=== PATIENT | female | born 1995 ===

== ENCOUNTER 2018-04-26 05:50 | Inpatient (IN) | payer OTHER ==
[2018-04-26] MEDS ORDERED: SODIUM PHOSPHATE/NA BIPHOS 133 ML ENEMA PR ONE (06:44)
[2018-04-26] MEDS ORDERED: DEXTROSE 5%-LACTATED RINGERS 1,000 ML IV SCH (06:45)
--- NOTE | 2018-04-26 06:50 | HP ---
Past Medical History - Primary Care Physician PCP:: Virgie Arteaga - Admission Chief Complaint: 22 yrs 39 .5 weeks , c/o onset of LP since 3.00AM History of Present Illness: care at [facility] transferred to [address] [place] [address] . pt has only 3 visits in the clinic chart not available . Wt Gain 36 lbs labs from : h/h 12.2/37.4,plt 115 , Hgb A1C <5.7, Sickle neg gc/ct neg, GBS neg Quantiferon neg RPR nr HIV neg HBSag neg Varicella immune Lead neg Rubella immune h/o US done , not available History Source: Patient, Medical Record Limitations to Obtaining History: No Limitations - Past Medical History [employer]: No: Migraine, Seizure Cardiovascular: No: HTN, Murmur Pulmonary: No: Asthma Gastrointestinal: Yes: Constipation Hepatobiliary: No: Hepatitis B Renal/: No: UTI ...: 1 ...Para: 0 ...Term: 0 ...: 0 ...Spon : 0 ...Induced : 0 ...LMP: 07/22/17 ... Weeks Gestation by Dates: 39.5 ...EDC by Dates: 04/28/18 Infectious Disease: No: HIV, Tuberculosis Psych: No: Addictions, Anxiety, Bipolar, Depression, Panic, Psychosis, Schizophrenia, Other Endocrine: No: Diabetes Mellitus, Hypothyroidism - Past Surgical History Past Surgical History: Yes: None Hx Myomectomy: No Hx Transabdominal Cerclage: No - Smoking History Smoking history: Never smoked Have you smoked in the past 12 months: No - Alcohol/Substance Use History of Substance Use: reports: None Home Medications - Allergies Allergies/Adverse Reactions: Allergies Allergy/AdvReac Type Severity Reaction Status Date / Time No Known Allergies Allergy Verified 04/26/18 07:15 - Home Medications Home Medications: Ambulatory Orders Ferrous Sulfate [Feosol] 325 mg PO DAILY 04/26/18 Vit No.129/Iron/Folic [ One Daily Tablet] 1 each PO DAILY 04/26 Physical Exam - Maternity Vital Signs: Vital Signs Temperature 98.1 F 04/26/18 06:15 Pulse Rate 56 L 04/26/18 06:15 Respiratory Rate 20 04/26/18 06:15 Blood Pressure 132/85 04/26/18 06:15 O2 Sat by Pulse Oximetry (%) Constitutional: Yes: Anxious, Moderate Distress Eyes: Yes: WNL HENT: Yes: WNL, Normocephalic Neck: Yes: WNL Cardiovascular: Yes: WNL Lungs: Clear to auscultation Breast(s): Yes: WNL. No: Mass - Abdominal Exam/OB Fundal Height: 38 Number of Fetuses: Single Presentation: Vertex Contractions: Yes Regularity: Irregular (2-5-6 min) Intensity: Moderate Monitor Mode: External Heart Rate (range): 140 Heart Rate Location: [facility] Category: I Accelerations: Uniform Decelerations: None - Vaginal Exam/OB Vaginal Bleediing: No Speculum Exam: No Dilatation (cm): 3 Effacement (%): 80 Amniotic Membrane Status: Intact Amniotic Fluid: Yes: Clear Presentation: Vertex/Position Station: -3 (-3/-2 , asyncltic head) - Physical Exam Musculoskeletal: Yes: WNL Extremities: Yes: WNL. No: Calf Tenderness Edema: LLE: 1+, RLE: 1+ Integumentary: Yes: WNL Deep Tendon Reflex Grade: Normal +2 ...Motor Strength: WNL Psychiatric: Yes: WNL, Alert, Oriented - Labs Lab Results: Laboratory Tests 04/26/18 04/26/18 04/26/18 06:45 06:45 07:35 WBC 6.9 Hgb 12.2 Hct 38.0 Plt Count 123 L PT with INR INR PTT (Actin FS) Sodium Potassium Chloride Carbon Dioxide BUN Creatinine Random Glucose Uric Acid Calcium Total Bilirubin AST ALT Urine Color Candida Urine Appearance Slcloudy Urine pH 6.0 Ur Specific [place] 1.018 Urine Protein 1+ H Urine Ketones 2+ H Urine Blood 1+ H Urine Nitrite Negative Urine Bilirubin Negative Urine Urobilinogen 2.0 H Ur Leukocyte Esterase 1+ H Urine WBC (Auto) 35 Urine RBC (Auto) 4 Opiates Screen Negative Methadone Screen Negative Barbiturate Screen Negative Phencyclidine Screen Negative Ur Amphetamines Screen Negative MDMA (Ecstasy) Screen Negative Benzodiazepines Screen Negative Cocaine Screen Negative U Marijuana (THC) Screen Negative RPR Titer Blood Type 04/26/18 04/26/18 04/26/18 07:35 07:35 07:35 WBC Hgb Hct Plt Count PT with INR 11.20 INR 0.95 PTT (Actin FS) 27.8 Sodium 138 Potassium 3.8 Chloride 106 Carbon Dioxide 20 L BUN 4 L Creatinine 0.5 L Random Glucose 94 Uric Acid 3.6 Calcium 9.4 Total Bilirubin 0.5 AST 22 ALT 23 Urine Color Urine Appearance Urine pH Ur Specific [place] Urine Protein Urine Ketones Urine Blood Urine Nitrite Urine Bilirubin Urine Urobilinogen Ur Leukocyte Esterase Urine WBC (Auto) Urine RBC (Auto) Opiates Screen Methadone Screen Barbiturate Screen Phencyclidine Screen Ur Amphetamines Screen MDMA (Ecstasy) Screen Benzodiazepines Screen Cocaine Screen U Marijuana (THC) Screen RPR Titer Nonreactive Blood Type 04/26/18 09:45 WBC Hgb Hct Plt Count PT with INR INR PTT (Actin FS) Sodium Potassium Chloride Carbon Dioxide BUN Creatinine Random Glucose Uric Acid Calcium Total Bilirubin AST ALT Urine Color Urine Appearance Urine pH Ur Specific [place] Urine Protein Urine Ketones Urine Blood Urine Nitrite Urine Bilirubin Urine Urobilinogen Ur Leukocyte Esterase Urine WBC (Auto) Urine RBC (Auto) Opiates Screen Methadone Screen Barbiturate Screen Phencyclidine Screen Ur Amphetamines Screen MDMA (Ecstasy) Screen Benzodiazepines Screen Cocaine Screen U Marijuana (THC) Screen RPR Titer Blood Type B POSITIVE Problem List - Problems (1) with 39 completed weeks gestation Code(s): Z3A.39 - 39 WEEKS GESTATION OF (2) Labor established Code(s): [id number] - Assessment/Plan 22 yrs , 39.5 weeks, early labor , Gbs neg , Plt 115 on 04/14/18 Plan Fleets, shower, may ambulate , order u/a, liver enz, uric acid , watch for BP Iv Stadol + Phenrgan & or Epidural for labor analgesia Trial Vaginal Delivery Note, 04/26/18 8.00AM I called Dr Petersen , Ob oncall ,handed over labor management to her
[2018-04-26] MEDS ORDERED: BUTORPHANOL TARTRATE 1 MG/ML VIAL IVPUSH ONE (07:11)
[2018-04-26] MEDS ORDERED: PROMETHAZINE HCL 25 MG/1 ML VIAL IVPUSH ONE (07:11)
[2018-04-26 07:36] LABS: URINE APPEARANCE SLCLOUDY; URINE BILIRUBIN NEGATIVE (<2.0 mg/dL); URINE COLOR AMBER; URINE GLUCOSE (UA) NEGATIVE (NEGATIVE); URINE KETONE 2+ (NEGATIVE); URINE LEUK ESTERASE 1+ (NEGATIVE); URINE NITRITE NEGATIVE (NEGATIVE); URINE PROTEIN 1+ (NEGATIVE)
[2018-04-26 07:40] VITALS: BMI 24.4
[2018-04-26 07:46] LABS: COCAINE, UR NEGATIVE ng/ml (CUTOFF=300); METHADONE, UR NEGATIVE ng/ml (CUTOFF=300); OPIATES, URI NEGATIVE ng/ml (CUTOFF=300); PHENCYCLIDINE,URINE NEGATIVE ng/ml (CUTOFF=25); URINE AMPHETAMINES NEGATIVE ng/ml (CUTOFF=500); URINE BARBITURATES NEGATIVE ng/ml (CUTOFF=200); URINE BENZODIAZEPINES NEGATIVE ng/ml (CUTOFF=200)
[2018-04-26 07:50] LABS: EPI CELLS MODERATE /HPF (FEW); URINE BACTERIA RARE /hpf (NONE SEEN); URINE MUCUS RARE
[2018-04-26 08:05] LABS: BASO % 0.3 % (0-2.0); EOS % 0.1 % (0-4.5); HEMOGLOBIN 12.2 GM/dL (10.7-15.3); LYMPH % 14.7 % (8-40); MCH 27.9 pg (25.7-33.7); MCHC 32.2 g/dl (32.0-36.0); MEAN CELL VOLUME 86.7 fl (80-96); MEAN PLT VOLUME 11.3 fl (7.5-11.1); NEUT % 80.9 % (42.8-82.8); PLATELET COUNT 123 K/MM3 (134-434); RBC 4.39 M/mm3 (3.60-5.2); RDW 15.1 % (11.6-15.6); WHITE BLOOD COUNT 6.9 K/mm3 (4.0-10.0)
[2018-04-26 08:31] LABS: INR 0.95 (0.83-1.09); PROTHROMBIN TIME (PATIENT) 11.2 SEC (9.7-13.0)
[2018-04-26 08:34] LABS: ACTIVATED PTT 27.8 SECONDS (25.2-36.5)
[2018-04-26 08:47] LABS: ALK PHOS 167 U/L (45-117); ANION GAP 12 MMOL/L (8-16); BILIRUBIN,TOTAL 0.5 mg/dL (0.2-1); BLOOD UREA NITROGEN 4 mg/dL (7-18); CALCIUM 9.4 mg/dL (8.5-10.1); CHLORIDE 106 mmol/L (98-107); CO2 20 mmol/L (21-32); CREATININE 0.5 mg/dL (0.55-1.3); GLUCOSE,RANDOM 94 mg/dL (74-106); POTASSIUM 3.8 mmol/L (3.5-5.1); SGOT/AST 22 U/L (15-37); SGPT/ALT 23 U/L (13-61); SODIUM 138 mmol/L (136-145); TOT PROT 6.7 g/dl (6.4-8.2); URIC ACID 3.6 mg/dL (2.6-7.2)
--- NOTE | 2018-04-26 10:06 | PN ---
Progress Note, Labor Vaginal Exam #1 Labor Exam Date: 04/26/18 Labor Exam Time: 10:05 Heart Rate (range): Cat Dilatation: 4 Effacement (%): 100 Amniotic Membrane Status: Intact Presentation: Vertex/Position Station: -3 Remarks: Irregular ctx, will start pitocin Recommended epidural for pain, given thrombocytopenia. Plts 123 today
[2018-04-26] MEDS: ELECTROLYTE-148 SOLN 1,000 ML IV SCH (10:30)
[2018-04-26] MEDS ORDERED: OXYTOCIN 30 UNITS in 0.9% NS 30 UNIT/500 ML INFUS.BAG IVPB ONE (10:37)
[2018-04-26] MEDS ORDERED: FENTANYL/BUPIVACAINE/NS/PF - PCEA - 50 ML DISP.SYRIN EP ONE ×3 (13:17→21:21)
[2018-04-26] MEDS ORDERED: BUPIVACAINE HCL/PF 0.25% (2.5MG/ML) 10 ML VIAL ONE ×2 (13:20→20:05)
--- NOTE | 2018-04-26 13:24 | PN ---
Progress Note, Labor Vaginal Exam #2 Labor Exam Date: 04/26/18 Labor Exam Time: 13:23 Heart Rate (range): Cat I Dilatation: 5 Effacement (%): 100 Amniotic Membrane Status: Ruptured Presentation: Vertex/Position Station: -3 Remarks: AROM, light meconium Cat I tracing Epidural Continue pitocin Anticipate
[2018-04-26] MEDS: FENTANYL/BUPIVACAINE/NS/PF - PCEA - 50 ML DISP.SYRIN EP SCH (13:45)
[2018-04-26] MEDS ORDERED: NALOXONE HCL 0.4 MG/ML VIAL IVPUSH PRN (13:48)
[2018-04-26] MEDS ORDERED: OXYTOCIN 30 UNITS in 0.9% NS 30 UNIT/500 ML INFUS.BAG IVPB SCH (15:15)
--- NOTE | 2018-04-26 16:00 | PN ---
Progress Note, Labor Vaginal Exam #4 Labor Exam Date: 04/26/18 Labor Exam Time: 15:59 Heart Rate (range): Cat I Dilatation: 5 Effacement (%): 100 Amniotic Membrane Status: Ruptured Presentation: Vertex/Position Station: -2 Remarks: No change in 2 hours despite regular ctx. IUPC placed, pitocin increased from 7mu to 8mu to achieve adequate MVU Manan Petersen MD
[2018-04-26] MEDS ORDERED: ACETAMINOPHEN 325 MG TABLET (FP) ONE (21:11)
[2018-04-26] MEDS ORDERED: ACETAMINOPHEN 325 MG TABLET (FP) PO ONE (21:30)
[2018-04-27] MEDS: ELECTROLYTE-148 SOLN 1,000 ML IV SCH
[2018-04-27] MEDS ORDERED: FENTANYL/BUPIVACAINE/NS/PF - PCEA - 50 ML DISP.SYRIN EP ONE (00:51)
[2018-04-27] MEDS ORDERED: OXYTOCIN 20 UNITS in 0.9% NS 20 UNIT/1,000 ML INFUS.BAG IV ONE ×2 (01:29→05:05)
[2018-04-27] MEDS ORDERED: LIDOCAINE HCL 1% PRESERVATIVE FREE - 30ML VIAL ONE (01:29)
[2018-04-27] MEDS: OXYTOCIN 20 UNITS in 0.9% NS 20 UNIT/1,000 ML INFUS.BAG IV SCH ×2 (02:55→05:05)
[2018-04-27] MEDS ORDERED: BENZOCAINE 20% 57 GM BOTTLE TP PRN (03:16)
[2018-04-27] MEDS ORDERED: WITCH HAZEL 50% (TUCKS) 40 PAD/JAR PAD TP PRN (03:16)
[2018-04-27] MEDS ORDERED: BENZOCAINE 28 GM HEMORRHOIDAL OINTMENT TP PRN (03:16)
[2018-04-27] MEDS ORDERED: BISACODYL 10 MG SUPP.RECT RC PRN (03:16)
[2018-04-27] MEDS ORDERED: IBUPROFEN 600 MG TABLET (FP) PO PRN (03:16)
[2018-04-27] MEDS ORDERED: METHYLERGONOVINE MALEATE 0.2 MG/1 ML AMP IM PRN (03:16)
[2018-04-27] MEDS ORDERED: ACETAMINOPHEN 325 MG TABLET (FP) PO PRN (03:16)
--- NOTE | 2018-04-27 03:19 | PN ---
Delivery - Delivery Vaginal Delivery: Spontaneous Type of Anesthesia: Epidural Episiotomy/Laceration: Midline EBL (cc): 300 Delivery, Single - Feeding Plan Initial Plan: Elected not to breastfeed exclusively throughout hospitalization Remarks - Remarks Remarks: Normal spontaneous vaginal delivery of a live infant boy over midline episiotomy. Nose / Oropharynx suctioned @ perineum. Cord clamped and cut. Baby handed to nurse. Placenta expelled spontaneously intact. Mother in stable condition.
[2018-04-27] MEDS ORDERED: ACETAMINOPHEN 325 MG TABLET (FP) ONE (03:50)
[2018-04-27] MEDS: FERROUS SO4 325 MG TABLET (FP) PO SCH ×2 (09:17→22:12)
[2018-04-27] MEDS: PRENATAL VITAMINS W/ FOLIC ACID TABLET (FP) PO SCH (09:17)
--- NOTE | 2018-04-28 07:34 | PN ---
Post Progress Note - Subjective Subjective: c/o cramps, perineal soreness Post Day: 1 Type of Delivery: Vital Signs: Vital Signs Temperature 98.9 F 04/28/18 06:00 Pulse Rate 52 L 04/28/18 06:00 Respiratory Rate 20 04/28/18 06:00 Blood Pressure 111/56 L 04/28/18 06:00 O2 Sat by Pulse Oximetry (%) 96 04/27/18 02:00 Breast Exam: Yes: Soft, Other (BF ). No: Engorged Uterus: Yes: Fundus Firm, Fundus below umbilicus, Non-tender Lochia: Yes: Rubra Lochia, amount: Moderate Extremities: Yes: Calves non-tender Perineum: Yes: Intact Activity: Ambulating - Labs Labs: CBC WBC 6.9 K/mm3 (4.0-10.0) 04/26/18 07:35 RBC 4.39 M/mm3 (3.60-5.2) 04/26/18 07:35 Hgb 12.2 GM/dL (10.7-15.3) 04/26/18 07:35 Hct 38.0 % (32.4-45.2) 04/26/18 07:35 MCV 86.7 fl (80-96) 04/26/18 07:35 MCH 27.9 pg (25.7-33.7) 04/26/18 07:35 MCHC 32.2 g/dl (32.0-36.0) 04/26/18 07:35 RDW 15.1 % (11.6-15.6) 04/26/18 07:35 Plt Count 123 K/MM3 (134-434) L 04/26/18 07:35 MPV 11.3 fl (7.5-11.1) H 04/26/18 07:35 Absolute Neuts (auto) 5.6 K/mm3 (1.5-8.0) 04/26/18 07:35 Neutrophils % 80.9 % (42.8-82.8) 04/26/18 07:35 Lymphocytes % 14.7 % (8-40) 04/26/18 07:35 Monocytes % 4.0 % (3.8-10.2) 04/26/18 07:35 Eosinophils % 0.1 % (0-4.5) 04/26/18 07:35 Basophils % 0.3 % (0-2.0) 04/26/18 07:35 Nucleated RBC % 0 % (0-0) 04/26/18 07:35 Problem List - Problems (1) with 39 completed weeks gestation Code(s): Z3A.39 - 39 WEEKS GESTATION OF (2) Labor established Code(s): KVT2814 - (3) Vaginal delivery Code(s): O80 - ENCOUNTER FOR FULL-TERM UNCOMPLICATED DELIVERY (4) Encounter for visit Code(s): Z39.2 - ENCOUNTER FOR ROUTINE FOLLOW-UP Assessment/Plan stable. ' pp cbc pending ct pp care discharge tomorrow.
[2018-04-28 07:54] LABS: BASO % 0.3 % (0-2.0); EOS % 0.2 % (0-4.5); HEMATOCRIT 32.3 % (32.4-45.2); HEMOGLOBIN 10.5 GM/dL (10.7-15.3); LYMPH % 10.8 % (8-40); MCH 28.1 pg (25.7-33.7); MCHC 32.4 g/dl (32.0-36.0); MEAN CELL VOLUME 86.7 fl (80-96); MEAN PLT VOLUME 10.6 fl (7.5-11.1); MONO % 5.8 % (3.8-10.2); NEUT % 82.9 % (42.8-82.8); PLATELET COUNT 115 K/MM3 (134-434); RBC 3.72 M/mm3 (3.60-5.2); RDW 15.2 % (11.6-15.6); WHITE BLOOD COUNT 15.8 K/mm3 (4.0-10.0)
[2018-04-28] MEDS: FERROUS SO4 325 MG TABLET (FP) PO SCH ×2 (11:14→21:43)
[2018-04-28] MEDS: PRENATAL VITAMINS W/ FOLIC ACID TABLET (FP) PO SCH (11:14)
[2018-04-28] MEDS ORDERED: SENNOSIDES/DOCUSATE COMBO (SENNA PLUS) TABLET (UD) PO PRN (22:00)
--- NOTE | 2018-04-29 07:57 | DS ---
Physical Examination Vital Signs: Vital Signs Temperature 98.3 F 04/28/18 21:00 Pulse Rate 56 L 04/28/18 21:00 Respiratory Rate 20 04/28/18 21:00 Blood Pressure 95/48 L 04/28/18 21:00 O2 Sat by Pulse Oximetry (%) 96 04/27/18 02:00 Constitutional: Yes: Well Nourished, No Distress, Calm Eyes: Yes: WNL, Conjunctiva Clear, EOM Intact HENT: Yes: WNL, Atraumatic, Normocephalic Neck: Yes: WNL, Supple, Trachea Midline Cardiovascular: Yes: WNL, Regular Rate and Rhythm Respiratory: Yes: WNL, Regular, CTA Bilaterally Gastrointestinal: Yes: WNL, Normal Bowel Sounds Musculoskeletal: Yes: WNL Extremities: Yes: WNL Edema: No Integumentary: Yes: WNL Neurological: Yes: WNL, Alert, Oriented ...Motor Strength: WNL Psychiatric: Yes: WNL Labs: CBC, BMP 04/28/18 07:30 04/26/18 07:35 Discharge Summary Reason For Visit: ADMIT LABOR Current Active Problems Encounter for visit (Acute) Labor established (Acute) with 39 completed weeks gestation (Acute) Vaginal delivery (Acute) Procedures: Principal: Hospital Course: Patient presented in labor Had 04/27 Routine course Discharged home on PPD#2 Condition: Stable - Instructions Diet, Activity, Other Instructions: Regular Diet Disposition: HOME - Home Medications Comprehensive Discharge Medication List: Ambulatory Orders Ferrous Sulfate [Feosol] 325 mg PO DAILY 04/26/18 Vit No.129/Iron/Folic [ One Daily Tablet] 1 each PO DAILY 04/26
[2018-04-29] MEDS: FENTANYL/BUPIVACAINE/NS/PF - PCEA - 50 ML DISP.SYRIN EP SCH (08:14)
[2018-04-29] MEDS: PRENATAL VITAMINS W/ FOLIC ACID TABLET (FP) PO SCH (09:21)
[2018-04-29] MEDS: FERROUS SO4 325 MG TABLET (FP) PO SCH (09:22)
[2018-04-29 11:51] VITALS: BP 96/52; PULSE 57; TEMP 98.8
== END 2018-04-29 14:00 | disposition home or self-care (01) | DRG 560 ==
LOC: JDEL 05:50 → JLDR 06:35 → J3W 04-27 05:11
PROVIDERS: ADMIT Obstetrics & Gynecology; ATTEND Obstetrics & Gynecology
PROC: 10E0XZZ Delivery of Products of Conception, External Approach (ICD-10-PCS; principal; 2018-04-27)
PROC: 0W8NXZZ Division of Female Perineum, External Approach (ICD-10-PCS; 2018-04-27)
DX: O99.113 Other diseases of the blood and blood-forming organs and certain disorders involving the immune mechanism complicating pregnancy, third trimester (principal); D69.6 Thrombocytopenia, unspecified; Z3A.39 39 weeks gestation of pregnancy; Z37.0 Single live birth
CPT/HCPCS: 36415; 59409; 80053; 80307; 81003; 81015; 84550; 85025; 85610; 85730; 86593; 86850; 86900; 86901